=== PATIENT | male | born 1955 | race Caucasian/White ===

== ENCOUNTER 2021-12-17 20:57 | Emergency (ER) | payer OTHER ==
[~2021-12-17 20:57] MED LIST: ALBUTEROL0.63 MG/3 INH; AUGMENTIN TAB875 MG PO; CEFTIN500 MG PO; FLONASE 0.05% N16 GM; IBUPROFEN600 MG PO; OMEPRAZOLE40 MG PO; PERCOCET 7.5-31 EACH PO; PHENERGAN 12.12.5 M1 PO; TYLENOL 325MG325 MG PO; VENTOLIN HFA8 GM INH; ZANAFLEX4 MG PO
[2021-12-18] MEDS ORDERED: CEPHALEXIN500 M1 PO (00:47)
== END 2021-12-18 01:20 | disposition home or self-care (01) ==
LOC: ER1 20:57
DX: S91.332A Puncture wound without foreign body, left foot, initial encounter (principal); W45.8XXA Other foreign body or object entering through skin, initial encounter
CPT/HCPCS: 73630; 90471; 90715; 96372; 99283; J0690